=== PATIENT | male | born 1970 | race Hispanic/Latino ===

== ENCOUNTER 2017-10-20 21:44 | Emergency (ER) | payer BC ==
[2017-10-20 21:54] VITALS: BP 129/89
--- NOTE | 2017-10-20 23:31 | XRay Report ---
FINAL REPORT PROCEDURE: XR CLAVICLE RT TECHNIQUE: RIGHT clavicle 2 radiographs. HISTORY: right clavicle pain COMPARISON: No prior studies are available for comparison. FINDINGS: Fracture (s) and/or Dislocation(s): An acute transverse fracture is noted involving the mid to distal 3rd clavicle with inferior displacement of the distal fragment by about 10 millimeters. There is increased acromioclavicular joint space consistent with dislocation. Glenohumeral alignment is maintained. Soft tissues:Normal. Bone mineralization:Normal. Foreign bodies: None. IMPRESSION: Acute fracture right clavicle Dislocation right acromioclavicular joint
--- NOTE | 2017-10-20 23:35 | XRay Report ---
FINAL REPORT PROCEDURE: XR SHOULDER 2+V RT TECHNIQUE: Right shoulder radiographs including AP views in internal and external rotation and abduction. CPT 76079 HISTORY: right shoulder pain COMPARISON: No prior studies are available for comparison. FINDINGS: Acute transverse fracture is noted involving middle 3rd diaphysis of right clavicle with inferior displacement of the distal fragment by about 10 millimeters. There is increased acromioclavicular joint space consistent with dislocation. Glenohumeral alignment is within normal limits. Visualized right ribs appear intact. Right lung is clear. IMPRESSION: Acute fracture clavicle Dislocation right acromioclavicular joint
[2017-10-20] MEDS ORDERED: NAPROSYN PO ONE (23:50)
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
[2017-10-21] MEDS ORDERED: MOTRIN ONE (00:09)
[2017-10-21] MEDS ORDERED: NAPROSYN PO ONE (23:53)
== END 2017-10-21 00:20 | disposition home or self-care (01) ==
LOC: ED 21:44
DX: S42.021A Displaced fracture of shaft of right clavicle, initial encounter for closed fracture (principal); W17.89XA Other fall from one level to another, initial encounter; Y93.89 Activity, other specified; Y92.89 Other specified places as the place of occurrence of the external cause; Y99.8 Other external cause status
CPT/HCPCS: 99283